=== PATIENT | male | born 1985 | race Hispanic/Latino ===

== ENCOUNTER 2025-07-12 17:27 | Emergency (ER) | payer SELFPAY ==
--- OUTSIDE RECORDS SUMMARY | 2025-07-12 17:29 | XMS REPORT | Continuity of Care Document ---
Author Name Unknown Address [address] [facility] [address] [place] [address] Organization [facility] [place] Address [address] 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 Role Phone Alden Kang Primary Care Physician [phone] ABDOUL BEASLEY Attending Clinician Unavailable Payers Payer Name Policy Type Policy Number Effective Date Expirati on Date Source [facility] [id number] 2014 00:00:00 Allergies, Adverse Reactions, Alerts Allergy Name Allergy Type Status Severity Reaction(s) Onset Date Inactive Date Treating Clinician Comments Source NO KNOWN ALLERGIE S Drug Class Active [facility] Social History Social Habit Start Date Stop Date Quantity Comments Source Sexual orientation U [facility] Sex assigned at 1985 00:00:00 1985 00:00:00 [facility] Smoking Status Start Date Stop Date Source Tobacco smoking consumption unknown [facility] Encounters Start Date/Time End Date/Time Encounter Type Admission Type Attending Clinicians Care Facility Care Department Encounter ID Source 2020-05-08 12:40:00 2020-05-08 12:40:00 Outpatient ABDOUL GUPTA [facility] [id number] [facility] 2020-05-06 16:40:00 2020-05-06 16:40:00 Outpatient Omero [facility] [id number] [facility]
[2025-07-12] MEDS ORDERED: ALBUTEROL 2.5 MG/3 ML NEB SOL ONE (17:30)
[2025-07-12] MEDS ORDERED: IPRATROPIUM BROM 0.5MG/2.5ML ONE (17:30)
[2025-07-12] MEDS ORDERED: METHYLPREDNISOLONE 125 MG INJ ONE (17:30)
[2025-07-12] MEDS ORDERED: FAMOTIDINE 20 MG/2 ML VIAL IV ONE (17:31)
[2025-07-12] MEDS ORDERED: DIPHENHYDRAMINE 50 MG/ML VIAL ONE (17:31)
[2025-07-12] MEDS ORDERED: NA CHLORIDE 0.9% 1,000 ML ONE ×2 (17:34→18:05)
[2025-07-12] MEDS ORDERED: LEVALBUTEROL 1.25 MG/3 ML NEB ONE (18:03)
[2025-07-12] MEDS ORDERED: predniSONE 20 MG TAB ONE (18:03)
[2025-07-12] MEDS ORDERED: THIAMINE 200 MG/2 ML INJ ONE (18:03)
--- NOTE | 2025-07-12 18:03 | RAD REPORT ---
EXAM: Chest Single View HISTORY: 40 years Male Cough;Dyspnea COMPARISON: No prior exams FINDINGS: LUNGS/PLEURA: The lungs are clear. No pleural effusions or pneumothorax. No pulmonary edema. CARDIAC/MEDIASTINUM: The cardiac silhouette is within normal limits. UPPER ABDOMEN: No significant abnormality. BONES: No acute abnormality. LINES/TUBES/OTHER: N/A IMPRESSION: No evidence of acute cardiopulmonary disease.
[2025-07-12] MEDS ORDERED: MULTIVITAMINS 10 ML VIAL (INJ) IV ONE (18:04)
[2025-07-12] MEDS ORDERED: FOLIC ACID 5 MG/ML VIAL ONE (18:05)
[2025-07-12] MEDS ORDERED: Magnesium Sulfate 2gm IVPB 2 G/50 ML BAG IV ONE (18:05)
[2025-07-12 18:23] LABS: Absolute Lymphocytes (CBC) 3.2 K/uL (0.7-4.9); Hematocrit 45.2 % (39.6-49.0); Hemoglobin 15.3 g/dL (13.6-17.9); MCH 29.0 pg (27.0-35.0); MCHC 33.9 g/dL (32.0-36.0); MCV 85.5 fL (80-100); MPV 7.5 fL (7.6-11.3); Nucleated RBC Absolute Count 0.0 (0-0); Nucleated Red Blood Cells % 0.1 % (0-0); RBC Red Blood Cell Count 5.29 M/uL (4.33-5.43); White Blood Count 11.80 thou/uL (4.3-10.9)
[2025-07-12 18:27] LABS: PT Prothrombin Time 11.3 SECONDS (10-13.0); PTT, Activated Partial Thromb 28.6 SECONDS (27.2-37.4); Protime INR 1.0
[2025-07-12 18:38] LABS: ALT/SGPT 33 U/L (16-61); AST/SGOT 29 U/L (15-37); Albumin 3.9 g/dL (3.4-5.0); Albumin/Globulin Ratio 1.1 (1.1-1.8); Alkaline Phosphatase 87 U/L (45-117); Anion Gap 14.5 mEq/L (5.0-15.0); BUN Blood Urea Nitrogen 7 mg/dL (7-18); Globulin 3.6 g/dL (2.3-3.5); Glucose Level 99 mg/dL (74-106); Potassium 3.5 mEq/L (3.5-5.1); Troponin High Sensitivity 6.3 pg/mL (<58.9)
[2025-07-12 18:39] LABS: Magnesium 2.6 mg/dL (1.6-2.4); NT PRO-BNP 12 pg/mL (<125)
[2025-07-12 18:46] LABS: Bilirubin Indirect, Calculated 0.5 mg/dL (0.2-0.8)
--- NOTE | 2025-07-12 19:03 | EDPHYS ---
Physician Documentation [facility] Name: Mariano Morris Age: 40 yrs Sex: Male : 1985 Arrival Date: 07/12/2025 Time: 17:27 Bed 16 Private MD: ED Physician Tomasz Camacho HPI: 07/12 17:56 This 40 yrs old Male presents to ER via Wheelchair with complaints of DYSPNEA, catina ASTHMA. 17:56 The patient has shortness of breath at rest, with light activity. Onset: The catina symptoms/episode began/occurred just prior to arrival. Duration: The symptoms are continuous, and are steadily getting worse. The patient's shortness of breath is aggravated by coughing, exertion, light activity. The patient presents to the emergency department with wheezing, Current therapy: None, that began without any particular precipitating event, the patient was reported to have audible wheezing, trouble breathing, Pre-hospital care: none. Onset: The symptoms/episode began/occurred. Modifying factors: The symptoms are alleviated by cool environment, inhaler, the symptoms are aggravated by cold weather, damp environment, exertion. Associated signs and symptoms: The patient has no apparent associated signs or symptoms. Severity of symptoms: At their worst the symptoms were moderate severe in the emergency department the symptoms have improved moderately. Associated signs and symptoms: Pertinent positives: chest pain, nausea. The patient has experienced similar episodes in the past, a few times. Historical: - Allergies: 17:44 hydrocodone bitartrate (bulk); db 17:44 ACETAMINOPHEN; db 17:44 meloxicam; db - PMHx: 17:44 Asthma; db - Immunization history:: Adult Immunizations unknown. - Infectious Disease History:: Denies. - Social history:: Smoking status: Patient reports the use of cigarette tobacco products. - Family history:: not pertinent. ROS: 17:56 Constitutional: Negative for fever, chills, and weight loss, Eyes: Negative for injury, catina pain, redness, and discharge, ENT: Negative for injury, pain, and discharge, Neck: Negative for injury, pain, and swelling, Abdomen/GI: Negative for abdominal pain, nausea, vomiting, diarrhea, and constipation, Back: Negative for injury and pain, : Negative for injury, bleeding, discharge, and swelling, MS/Extremity: Negative for injury and deformity, Skin: Negative for injury, rash, and discoloration, Neuro: Negative for headache, weakness, numbness, tingling, and seizure, Allergy/Immunology: Negative for hives, rash, and allergies, Endocrine: Negative for neck swelling, polydipsia, polyuria, polyphagia, and marked weight changes, Hematologic/Lymphatic: Negative for swollen nodes, abnormal bleeding, and unusual bruising, 17:56 Cardiovascular: Positive for palpitations, 17:56 Respiratory: Positive for cough, shortness of breath, wheezing, inspiratory, expiratory, 17:56 Abdomen/GI: Positive for nausea, 17:56 MS/extremity: Negative for acute changes, swelling, tenderness, 17:56 Neuro: Negative for altered mental status, dizziness, gait disturbance, loss of consciousness, seizure activity, 17:56 Psych: Positive for anxiety, Exam: 17:56 Constitutional: This is a well developed, well nourished patient who is awake, alert, catina and in no acute distress. Head/Face: Normocephalic, atraumatic. Eyes: Pupils equal round and reactive to light, extra-ocular motions intact. Lids and lashes normal. Conjunctiva and sclera are non-icteric and not injected. Cornea within normal limits. Periorbital areas with no swelling, redness, or edema. ENT: Nares patent. No nasal discharge, no septal abnormalities noted. Tympanic membranes are normal and external auditory canals are clear. Oropharynx with no redness, swelling, or masses, exudates, or evidence of obstruction, uvula midline. Mucous membranes moist. Neck: Trachea midline, no thyromegaly or masses palpated, and no cervical lymphadenopathy. Supple, full range of motion without nuchal rigidity, or vertebral point tenderness. No Meningismus. Chest/axilla: Normal chest wall appearance and motion. Nontender with no deformity. No lesions are appreciated. Abdomen/GI: Soft, non-tender, with normal bowel sounds. No distension or tympany. No guarding or rebound. No evidence of tenderness throughout. Back: No spinal tenderness. No costovertebral tenderness. Full range of motion. Male : Normal genitalia with no discharge or lesions. Skin: Warm, dry with normal turgor. Normal color with no rashes, no lesions, and no evidence of cellulitis. MS/ Extremity: Pulses equal, no cyanosis. Neurovascular intact. Full, normal range of motion., bilateral aka Neuro: Awake and alert, GCS 15, oriented to person, place, time, and situation. Cranial nerves II-XII grossly intact. Motor strength 5/5 in all extremities. Sensory grossly intact. Cerebellar exam normal. Normal gait. Psych: Awake, alert, with orientation to person, place and time. Behavior, mood, and affect are within normal limits. 17:56 Chest/axilla: Inspection: normal, Palpation: is normal, no acute changes, crepitus, is not appreciated, Axilla: are normal, Lymph nodes: lymphadenopathy is not appreciated, 17:56 ECG was reviewed by the Attending Physician. 18:07 Musculoskeletal/extremity: ROM: no acute changes, Circulation is intact in all catina extremities. Sensation intact. Compartment Syndrome exam of affected extremity: is normal. Weight bearing: able to fully bear weight, DVT Exam: No signs of deep vein thrombosis. no pain, no swelling, no tenderness, negative Homans' sign noted on exam, no appreciated bluish discoloration, no erythema, no increased warmth, Calves: are non-tender, have equal circumference, 18:07 Neuro: Orientation: is normal, appropriate for stated age, no acute changes, Mentation: is normal, appropriate for stated age, no acute changes, Memory: is normal, appropriate for stated age, no acute changes, Cranial nerves: grossly normal, Motor: is normal, is grossly normal based on the patient's age, no acute changes, moves all fours, strength is 5/5 in all extremities, Sensation: no obvious gross deficits, appropriate no acute changes, Gait: is steady, appropriate for age, Deep tendon reflexes are 2+ (normal) in the bilateral brachioradialis, bicep, tricep and patellar and Achilles tendons, Babinski testing is normal, seizure activity, is not displayed by the patient, Vital Signs: 17:28 BP 120 / 83; Pulse 136; Resp 36; Temp 97.9(A); db 17:45 BP 131 / 90; Pulse 131; Resp 28; Pulse Ox 99% on 2 lpm NC; db 18:00 BP 121 / 73; Pulse 130; Resp 24; Pulse Ox 96% on 2 lpm [place]; db 18:15 BP 122 / 72; Pulse 122; Resp 27; Pulse Ox 97% on 2 lpm [place]; db 19:30 BP 106 / 61; Pulse 98; Resp 20; Temp 98.2; Pulse Ox 100% ; kj2 [place] Coma Score: 18:07 Eye Response: spontaneous(4). Motor Response: obeys commands(6). Verbal Response: catina oriented(5). Total: 15. MDM: 17:29 Medical Screening Exam initiated catina 18:00 Differential diagnosis: Anemia Anxiety Reaction asthma, Bronchitis CHF exacerbation, catina Chronic Obstructive Pulmonary Disease acute asthma, exercise-induced asthma, reactive airway, CHF, anaphylaxis, URI, Myocardial Infarction pneumonia, Pneumothorax Psychogenic pulmonary edema, Pulmonary Embolism reactive airway disease, Sepsis Unstable Angina. Antibiotic administration: The patient is discharged and will get outpatient antibiotics, Zithromax. Immunization status:. Data reviewed: vital signs, nurses notes, lab test result(s), EKG, radiologic studies, plain films. Consideration of Admission/Observation Escalation of care including admission/observation considered. I considered the following discharge prescriptions or medication management in the emergency department Medications were administered in the Emergency Department. See MAR. Independent interpretation of the following test(s) in the Emergency Department EKG: See my EKG interpretation above. Test considered but Not performed: CT: NO CT CHEST . Historians other than the Patient: Family Member: MULTIPLE FAMILY MEMBERS. Care significantly affected by the following chronic conditions: ASTHMA. Counseling: I had a detailed discussion with the patient and/or guardian regarding the historical points, exam findings, and any diagnostic results supporting the discharge/admit diagnosis, the presence of at least one elevated blood pressure reading (>120/80) during this emergency department visit, lab results, radiology results, the need for outpatient follow up, for definitive care, a family practitioner, a psychiatrist. 07/12 17:30 Order name: Basic Metabolic Panel; Complete Time: 18:53 [facility] 07/12 17:30 Order name: CBC with Diff; Complete Time: 18:42 [facility] 07/12 17:30 Order name: LFT's; Complete Time: 18:53 [facility] 07/12 17:30 Order name: Magnesium; Complete Time: 18:53 [facility] 07/12 17:30 Order name: NT PRO-BNP; Complete Time: 18:53 [facility] 07/12 17:30 Order name: PT-INR; Complete Time: 18:42 [facility] 07/12 17:30 Order name: Troponin HS; Complete Time: 18:53 [facility] 07/12 17:30 Order name: Acetaminophen; Complete Time: 18:53 [facility] 07/12 17:30 Order name: ETOH Level; Complete Time: 19:02 [facility] 07/12 17:30 Order name: Ptt, Activated; Complete Time: 18:42 catina 07/12 17:30 Order name: Salicylate; Complete Time: 18:53 [facility] 07/12 17:30 Order name: XRAY Chest (1 view); Complete Time: 18:13 [facility] 07/12 17:30 Order name: EKG; Complete Time: 17:31 [facility] 07/12 17:30 Order name: Cardiac monitoring; Complete Time: 17:58 [facility] 07/12 17:30 Order name: EKG - Nurse/Tech; Complete Time: 17:58 [facility] 07/12 17:30 Order name: IV Saline Lock; Complete Time: 17:35 [facility] 07/12 17:30 Order name: Labs collected and sent; Complete Time: 17:59 [facility] 07/12 17:30 Order name: O2 Per Protocol; Complete Time: 17:59 [facility] 07/12 17:30 Order name: O2 Sat Monitoring; Complete Time: 17:59 [facility] 07/12 17:30 Order name: Suicide Screening ([place]); Complete Time: 17:47 [facility] 07/12 18:14 Order name: PO challenge; Complete Time: 19:33 [facility] EC:56 Rate is 132 beats/min. Rhythm is regular. QRS [place] is Normal. HI interval is normal. QT catina interval is normal. No Q waves. T waves are Normal. No ST changes noted. Clinical impression: Sinus tachycardia and No evidence of ischemia. Interpreted by me. Reviewed by me. Administered Medications: 19:44 Discontinued: Banana Bag - (ns 0.9% 1000 ml, folic acid ivpb 1 mg, [id number] mg, kj2 multivitamin1 amp) IV at 500 ml/hr once 17:30 Drug: Albuterol Inhalation 7.5 mg Inhalation once Route: Inhalation; db 18:39 Follow up: Response: No adverse reaction db 17:31 Drug: Ipratropium Inhalation Aerosol 0.5 mg Inhalation once Route: Inhalation; db 19:46 Follow up: Response: No adverse reaction kj2 17:33 Not Given (Physician Discretion): levalbuterol3.75 mg Inhalation once db 17:35 Drug: NS 0.9% IV 1000 ml IV at 1000 ml once; to be given as a bolus over 60 minutes db Route: IV; Rate: 1000 ml; Site: right wrist; 18:30 Follow up: Response: No adverse reaction; IV Status: Completed infusion; IV Intake: db 1000ml 17:35 Drug: MethylPrednisoLONE IVP 125 mg IVP once Route: IVP; Site: right wrist; db 18:38 Follow up: Response: No adverse reaction db 17:35 Drug: Famotidine IVP 40 mg IVP once; dilute with 10 mL 0.9% NaCl; give over 2 minutes db Route: IVP; Site: right wrist; 18:38 Follow up: Response: No adverse reaction db 17:35 Drug: diphenhydrAMINE IVP 25 mg IVP once Route: IVP; Site: right wrist; db 18:38 Follow up: Response: No adverse reaction db 18:15 Drug: predniSONE PO 40 mg PO once Route: PO; db 18:38 Follow up: Response: No adverse reaction db 18:15 Drug: Magnesium Sulfate IVPB 2 grams IVPB once over 2 hrs Route: IVPB; Infused Over: 2 db hrs; Site: right wrist; 19:45 Follow up: IV Status: Completed infusion; IV Intake: 100ml kj2 18:15 Drug: Levalbuterol Inhalation 2.5 mg Inhalation once Route: Inhalation; db 19:45 Follow up: Response: No adverse reaction kj2 18:15 Drug: Thiamine IV 100 mg IV at bolus once Route: IV; Rate: bolus; Site: right wrist; db 19:45 Follow up: IV Status: Order to discontinue infusion; IV Intake: 700ml kj2 18:15 Drug: Banana Bag - (Multivitamin IV 1 amp, NS 0.9% IV 1000 ml, Thiamine IV 100 mg, db foLIC Acid IVPB 1 mg) IV at 500 ml/hr once Route: IV; Rate: 500 ml/hr; Site: right wrist; 23:51 Follow up: IV Status: Order to discontinue infusion; IV Intake: 700ml kj2 Disposition Summary: 07/12/25 19:02 Discharge Ordered Notes: Location: Home catina Problem: new catina Symptoms: have improved catina Condition: Stable catina Diagnosis - Moderate persistent asthma with (acute) exacerbation catina - Dyspnea catina - Anxiety disorder, unspecified catina - Alcohol abuse catina - Alcohol abuse with intoxication catina Followup: catina - With: Private Physician - When: 2 - 3 days - Reason: Recheck today's complaints, Continuance of care, Re-evaluation by your physician Followup: catina - With: Alphonso Dalton MD - When: 2 - 3 days - Reason: Recheck today's complaints, Re-evaluation by your physician Discharge Instructions: - Discharge Summary Sheet catina - Alcohol Intoxication catina - Panic Attack catina - Asthma, Adult catina - Alcohol Use Disorder catina - How to Use a Metered Dose Inhaler catina - Alcohol Abuse and Nutrition catina - Asthma, Adult, [id number] catina - Panic Attack, [id number] catina - Asthma Action Plan, Adult catina - Cough, Adult catina - Managing Anxiety, Adult catina Forms: - Medication Reconciliation Form [facility] - Antibiotic Education catina - Prescription Opioid Use catina - Patient Portal Instructions [facility] - Leadership Thank You Letter [facility] Prescriptions: - albuterol sulfate 90 mcg/actuation Inhalation HFA Aerosol Inhaler - inhale 2 puff INHALATION route every 4 to 6 hours as needed for shortness of catina breath or wheezing; 1 unit; Refills: 0, Product Selection Permitted - Pepcid 20 mg Oral tablet - take 1 tablet ORAL route every 12 hours for 21 days; 42 tablet; Refills: 0, catina Product Selection Permitted - Albuterol Sulfate 2.5 mg /3 mL (0.083 %) Inhalation Solution for Nebulization - inhale 1 unit NEBULIZATION route every 4-6 hours As needed; 36 unit; Refills: catina 0, Product Selection Permitted - Zithromax Z-Prince 250 mg Oral Tablet - take 1 tablet ORAL route as directed for 5 days Day 1 - take two (2) tablets catina one time. Day 2, 3, 4 , 5 take one (1) tablet once daily.; 6 tablet; Refills: 0, Product Selection Permitted - Prednisone 20 mg Oral Tablet - take 2 tablets ORAL route once daily for 5 days; 10 tablet; Refills: 0, Product catina Selection Permitted Signatures: Dispatcher [employer] EDMS Tomasz Camacho MD MD cha Benton, Danielle, FELICITAS RN Laurie Harley PAMeka PA-Stanislav [id number] Hollie Toney RN kj2 Corrections: (The following items were deleted from the chart) 17:31 17:31 BASIC METABOLIC PANEL+C.LAB.BRZ ordered. EDMS EDMS 17:31 17:31 CBC+H.LAB.BRZ ordered. EDMS EDMS 17: 17:31 HEPATIC FUNCTION+C.LAB.BRZ ordered. EDMS EDMS 17: 17:31 MAGNESIUM+C.LAB.BRZ ordered. EDMS EDMS 17: 17:31 PROBNP+C.LAB.BRZ ordered. EDMS EDMS 17: 17:31 PROTIME (+INR)+COAG.LAB.BRZ ordered. EDMS EDMS 17: 17:31 Troponin High Sensitivity+C.LAB.BRZ ordered. EDMS EDMS 17: 17:31 ACETAMINOPHEN+C.LAB.BRZ ordered. EDMS EDMS 17: 17:31 ETHANOL+C.LAB.BRZ ordered. EDMS EDMS 17: 17:31 PTT, ACTIVATED+COAG.LAB.BRZ ordered. EDMS EDMS 17: 17:31 SALICYLATE+C.LAB.BRZ ordered. EDMS EDMS 17: 17:31 URINE DRUG SCREEN+UC.LAB.BRZ ordered. EDMS EDMS
--- NOTE | 2025-07-12 19:03 | ER ---
Nurse's Notes [facility] Name: Mariano Morris Age: 40 yrs Sex: Male : 1985 Arrival Date: 07/12/2025 Time: 17:27 Bed 16 Private MD: Diagnosis: Moderate persistent asthma with (acute) exacerbation;Dyspnea;Anxiety disorder, unspecified;Alcohol abuse;Alcohol abuse with intoxication Presentation: 07/12 17:43 Chief complaint: Patient states: PT PRESENTED ASTHMA EXACERBATION. CAME WITH FAMILY. db Coronavirus screen: Client denies travel out of the [place] in the last 14 days. At this time, the client does not indicate any symptoms associated with coronavirus-19. Ebola Screen: Patient negative for fever greater than or equal to 101.5 degrees Fahrenheit, and additional compatible Ebola Virus Disease symptoms Patient denies exposure to infectious person. Patient denies travel to an Ebola-affected area in the 21 days before illness onset. No symptoms or risks identified at this time. Initial Sepsis Screen: Does the patient meet any 2 criteria? No. Patient's initial sepsis screen is negative. Does the patient have a suspected source of infection? No. Patient's initial sepsis screen is negative. Risk Assessment: Do you want to hurt yourself or someone else? Patient reports no desire to harm self or others. Onset of symptoms was July 12, 2025 at 17:25. 17:43 Method Of Arrival: Wheelchair db 17:43 Acuity: AMBER 1 db Triage Assessment: 17:44 General: Appears distressed, Behavior is anxious. Pain: Unable to use pain scale. db Neuro: Level of Consciousness is awake, alert, obeys commands, Oriented to. Respiratory: Reports shortness of breath at rest since 1700 air hunger Airway is patent Respiratory effort is even, labored, Respiratory pattern is regular, symmetrical. Historical: - Allergies: 17:44 hydrocodone bitartrate (bulk); db 17:44 ACETAMINOPHEN; db 17:44 meloxicam; db - PMHx: 17:44 Asthma; db - Immunization history:: Adult Immunizations unknown. - Infectious Disease History:: Denies. - Social history:: Smoking status: Patient reports the use of cigarette tobacco products. - Family history:: not pertinent. Screenin:15 [facility] ED Fall Risk Assessment (Adult) History of falling in the last 3 months, db including since admission No falls in past 3 months (0 pts) Confusion or Disorientation No (0 pts) Intoxicated or Sedated No (0 pts) Impaired Gait No (0 pts) Mobility Assist Device Used No (0 pt) Altered Elimination No (0 pt) Score/Fall Risk Level 0 - 2 = Low Risk Oriented to surroundings, Maintained a safe environment. Abuse screen: Denies threats or abuse. Denies injuries from another. Nutritional screening: No deficits noted. Tuberculosis screening: No symptoms or risk factors identified. Assessment: 18:15 Reassessment: Patient appears in no apparent distress at this time. Patient and/or db family updated on plan of care and expected duration. Pain level reassessed. Patient is alert, oriented x 3, equal unlabored respirations, skin warm/dry/pink. Patient states feeling better. Patient states symptoms have improved. 18:20 Reassessment: Patient appears in no apparent distress at this time. Patient and/or kj2 family updated on plan of care and expected duration. Pain level reassessed. Patient is alert, oriented x 3, equal unlabored respirations, skin warm/dry/pink. 18:35 Reassessment: Patient appears in no apparent distress at this time. Patient and/or kj2 family updated on plan of care and expected duration. Pain level reassessed. Patient is alert, oriented x 3, equal unlabored respirations, skin warm/dry/pink. Vital Signs: 17:28 BP 120 / 83; Pulse 136; Resp 36; Temp 97.9(A); db 17:45 BP 131 / 90; Pulse 131; Resp 28; Pulse Ox 99% on 2 lpm NC; db 18:00 BP 121 / 73; Pulse 130; Resp 24; Pulse Ox 96% on 2 lpm NC; db 18:15 BP 122 / 72; Pulse 122; Resp 27; Pulse Ox 97% on 2 lpm NC; db 19:30 BP 106 / 61; Pulse 98; Resp 20; Temp 98.2; Pulse Ox 100% ; kj2 Roya Coma Score: 18:07 Eye Response: spontaneous(4). Motor Response: obeys commands(6). Verbal Response: catina oriented(5). Total: 15. ED Course: 17:29 Patient arrived in ED. catina 17:29 Tomasz Camacho MD is Attending Physician. catina 17:30 Initial lab(s) drawn, sent to lab. EKG done, reviewed by Tomasz Camacho MD. Inserted db saline lock: 22 gauge in right wrist, using aseptic technique. Blood collected. Flushed with 10 mL NS. 17:44 Triage completed. db 17:46 Arm band placed on Patient placed in an exam room. db 17:58 XRAY Chest (1 view) In Process Unspecified. EDMS 18:15 Patient has correct armband on for positive identification. Bed in low position. Call db light in reach. Side rails up X 1. Client placed on continuous cardiac and pulse oximetry monitoring. NIBP monitoring applied. gambling monitor on. Pulse ox on. NIBP on. Warm blanket given. Pillow given. 18:30 Provided Education on: call light. Report received from FELICITAS De Santiago. kj2 18:38 Hollie Toney RN is Primary Nurse. kj2 19:02 Alphonso Dalton MD is Referral Physician. [facility] 19:48 No provider procedures requiring assistance completed. IV discontinued, intact, kj2 bleeding controlled, No redness/swelling at site. Pressure dressing applied. Administered Medications: 19:44 Discontinued: Banana Bag - (ns 0.9% 1000 ml, folic acid ivpb 1 mg, mg, kj2 multivitamin1 amp) IV at 500 ml/hr once 17:30 Drug: Albuterol Inhalation 7.5 mg Inhalation once Route: Inhalation; db 18:39 Follow up: Response: No adverse reaction db 17:31 Drug: Ipratropium Inhalation Aerosol 0.5 mg Inhalation once Route: Inhalation; db 19:46 Follow up: Response: No adverse reaction kj2 17:33 Not Given (Physician Discretion): levalbuterol3.75 mg Inhalation once db 17:35 Drug: NS 0.9% IV 1000 ml IV at 1000 ml once; to be given as a bolus over 60 minutes db Route: IV; Rate: 1000 ml; Site: right wrist; 18:30 Follow up: Response: No adverse reaction; IV Status: Completed infusion; IV Intake: db 1000ml 17:35 Drug: MethylPrednisoLONE IVP 125 mg IVP once Route: IVP; Site: right wrist; db 18:38 Follow up: Response: No adverse reaction db 17:35 Drug: Famotidine IVP 40 mg IVP once; dilute with 10 mL 0.9% NaCl; give over 2 minutes db Route: IVP; Site: right wrist; 18:38 Follow up: Response: No adverse reaction db 17:35 Drug: diphenhydrAMINE IVP 25 mg IVP once Route: IVP; Site: right wrist; db 18:38 Follow up: Response: No adverse reaction db 18:15 Drug: predniSONE PO 40 mg PO once Route: PO; db 18:38 Follow up: Response: No adverse reaction db 18:15 Drug: Magnesium Sulfate IVPB 2 grams IVPB once over 2 hrs Route: IVPB; Infused Over: 2 db hrs; Site: right wrist; 19:45 Follow up: IV Status: Completed infusion; IV Intake: 100ml kj2 18:15 Drug: Levalbuterol Inhalation 2.5 mg Inhalation once Route: Inhalation; db 19:45 Follow up: Response: No adverse reaction kj2 18:15 Drug: Thiamine IV 100 mg IV at bolus once Route: IV; Rate: bolus; Site: right wrist; db 19:45 Follow up: IV Status: Order to discontinue infusion; IV Intake: 700ml kj2 18:15 Drug: Banana Bag - (Multivitamin IV 1 amp, NS 0.9% IV 1000 ml, Thiamine IV 100 mg, db foLIC Acid IVPB 1 mg) IV at 500 ml/hr once Route: IV; Rate: 500 ml/hr; Site: right wrist; 23:51 Follow up: IV Status: Order to discontinue infusion; IV Intake: 700ml kj2 Medication: 18:41 VIS not applicable for this client. db Intake: 18:30 IV: 1000ml; Total: 1000ml. db 19:45 IV: 700ml; Total: 1700ml. kj2 19:45 IV: 100ml; Total: 1800ml. kj2 23:51 IV: 700ml; Total: 2500ml. kj2 Outcome: 19:02 Discharge ordered by MD. dominique 19:48 Discharged to home ambulatory, kj2 19:48 Condition: stable 19:48 Discharge instructions given to patient, Instructed on discharge instructions, follow up and referral plans. Demonstrated understanding of instructions, follow-up care, medications, Prescriptions given X 4, 19:49 Patient left the ED. kj2 Signatures: Dispatcher [employer] EDWA Tomasz Camacho MD MD cha Benton, Danielle, FELICITAS RN Hollie Pinedo RN RN kj2 Corrections: (The following items were deleted from the chart) 18:00 17:59 Inserted saline lock: 22 gauge in right wrist, using aseptic technique. Blood db collected. Flushed with 10 mL NS jodi 18:00 17:59 Initial lab(s) drawn, sent to lab. EKG done, reviewed by Tomasz zapata db 18:30 17:43 BP 120 / 83; Pulse 136bpm; Resp 36bpm; Temp 97.9F Axillary; db db
== END 2025-07-12 19:49 | disposition home or self-care (01) ==
LOC: ER 17:27
DX: J45.41 Moderate persistent asthma with (acute) exacerbation (principal); F41.9 Anxiety disorder, unspecified; F10.129 Alcohol abuse with intoxication, unspecified; Z72.0 Tobacco use
CPT/HCPCS: 36415; 71045; 80048; 80076; 80143; 80179; 82077; 83735; 83880; 84484; 85025; 85610; 85730; 93005; 96361; 96365; 96366; 96367; 96368; 96375; 99285; J1200; J2919; J3411; J3475; J7030; J7512; J7613; J7614; J7644

== ENCOUNTER 2025-08-05 03:00 | Emergency (ER) | payer SELFPAY ==
--- NOTE | 2025-08-05 03:32 | EDPHYS ---
Physician Documentation [facility] Name: Mariano Morris Age: 40 yrs Sex: Male : 1985 Arrival Date: 08/05/2025 Time: 03:00 Bed 3 Private MD: ED Physician Melvin Phillips HPI: 08/05 03:16 This 40 yrs old Male presents to ER via Unassigned with complaints of Chest sp4 Pain. 23:41 40-year-old male presents with EMS for complaint of acute left-sided chest pain with sp4 radiation down the left arm. Patient reports he has history of asthma and uncontrolled hypertension. Patient reports he has consumed a line of cocaine at the local bar. Pain started shortly after cocaine consumption.. Historical: - Allergies: 03:30 ACETAMINOPHEN; bm8 03:30 hydrocodone bitartrate (bulk); bm8 03:30 meloxicam; bm8 - Home Meds: 03:30 None [Active]; bm8 - PMHx: 03:30 Asthma; bm8 - PSHx: 03:30 None; bm8 - Immunization history:: Adult Immunizations up to date. - Infectious Disease History:: Denies. - Social history:: Smoking status: Patient reports the use of cigarette tobacco products, smokes one pack cigarettes per day. Patient uses alcohol, only on a social basis. street drugs, cocaine. - Family history:: not pertinent. ROS: 23:41 Constitutional: Negative for fever, chills, and weight loss, positive acute chest pain, sp4 positive cocaine ingestion 23:41 All other systems are negative, Exam: 23:41 Constitutional: This is a well developed, well nourished patient who is awake, alert, sp4 and in no acute distress. Head/Face: Normocephalic, atraumatic. Eyes: Pupils equal round and reactive to light, extra-ocular motions intact. Lids and lashes normal. Conjunctiva and sclera are not injected. Cornea within normal limits. Periorbital areas with no swelling, redness, or edema. ENT: Nares patent. No nasal discharge, no septal abnormalities noted. Tympanic membranes are normal and external auditory canals are clear. Oropharynx with no redness, swelling, or masses, exudates, or evidence of obstruction, uvula midline. Mucous membranes moist. Neck: Trachea midline, no thyromegaly or masses palpated, and no cervical lymphadenopathy. Supple, full range of motion without nuchal rigidity, or vertebral point tenderness. Chest/axilla: Normal chest wall appearance and motion. Nontender with no deformity. No lesions are appreciated. Cardiovascular: Regular rate and rhythm with a normal S1 and S2. No gallops, murmurs, or rubs. No pulse deficits. Respiratory: Lungs have equal breath sounds bilaterally, clear to auscultation and percussion. No rales, rhonchi or wheezes noted. No increased work of breathing, no retractions or nasal flaring. Abdomen/GI: Soft, with normal bowel sounds. No distension or tympany. No guarding or rebound. No evidence of tenderness throughout. Back: No spinal tenderness. No costovertebral tenderness. Skin: Warm, dry with normal turgor. Normal color with no rashes, no lesions, and no evidence of cellulitis. MS/ Extremity: Pulses equal, no cyanosis. Neurovascular intact. Full, normal range of motion. Neuro: Awake and alert, GCS 15, oriented to person, place, time, and situation. Cranial nerves II-XII grossly intact. Motor strength 5/5 in all extremities. Sensory grossly intact. Psych: Awake, alert, with orientation to person, place and time. Behavior, mood, and affect are within normal limits 23:41 ECG was reviewed by the Attending Physician. Positive for EKG at 0302 normal sinus rhythm, normal EKG Vital Signs: 03:03 BP 132 / 90; Pulse 99; Resp 20; Temp 98; Pulse Ox 99% ; Weight 81.65 kg; Height 5 ft. 7 bm8 in. ; Pain 2/10; 03:32 bm8 03:03 Body Mass Index 28.19 (81.65 kg, 170.18 cm) bm8 03:03 Pain Scale: Adult bm8 03:32 pt declines vitals at this time bm8 Roya Coma Score: 03:32 Eye Response: spontaneous(4). Verbal Response: oriented(5). Motor Response: obeys bm8 commands(6). Total: 15. 23:41 Eye Response: spontaneous(4). Verbal Response: oriented(5). Motor Response: obeys sp4 commands(6). Total: 15. MDM: 03:03 Medical Screening Exam initiated sp4 23:44 Differential diagnosis: acute myocardial infarction, acute pericarditis, anxiety, chest sp4 wall pain, costochondritis, esophagitis, gastritis. HEART Score: History: Slightly Suspicious (0), ECG: Normal (0), Age: < or = 45 years (0), Risk Factors: 1 or 2 risk factors (1), [Hypertension] Troponin: < or = 1 x Normal Limit (0), Total Score = 1. Data reviewed: vital signs, nurses notes, EMS record, EKG. ED course: Patient states he is feeling better and pain is resolving. He would like to be released from the ER. Patient declined labs and other workup. Vital signs are stable we believe it is appropriate for patient to be given informed discharge. 08/05 03:05 Order name: EKG - Nurse/Tech; Complete Time: 03:35 sp4 08/05 03:05 Order name: IV Saline Lock; Complete Time: 03:35 sp4 08/05 03:05 Order name: Labs collected and sent; Complete Time: 03:35 sp4 08/05 03:05 Order name: O2 Per Protocol; Complete Time: 03:35 sp4 08/05 03:05 Order name: O2 Sat Monitoring; Complete Time: 03:35 sp4 EC:02 Rate is 95 beats/min. Rhythm is regular, Normal Sinus Rhythm. QRS [place] is Normal. GA sp4 interval is normal. QRS interval is normal. QT interval is normal. No Q waves. T waves are Normal. No ST changes noted. Clinical impression: No evidence of ischemia. Interpreted by me. Reviewed by me. Administered Medications: 03:37 Drug: Diazepam PO 5 mg PO once Route: PO; bm8 03:37 Follow up: Response: No adverse reaction; Medication Administered at Departure bm8 Disposition Summary: 08/05/25 03:31 Discharge Ordered Notes: Location: Home sp4 Problem: new sp4 Symptoms: have improved sp4 Condition: Stable sp4 Diagnosis - Atypical chest pain, Cocain ingestion sp4 Followup: sp4 - With: Gómez Mcfadden DO - When: 7 - 10 days - Reason: Recheck today's complaints Discharge Instructions: - Discharge Summary Sheet sp4 - Cocaine Use Disorder sp4 Forms: - Patient Portal Instructions sp4 Signatures: Dispatcher [employer] EDMelvin Marquis MD MD sp4 Clarence Calloway, RN RN bm8 Corrections: (The following items were deleted from the chart) 03:05 03:05 BASIC METABOLIC PANEL+C.LAB.BRZ ordered. EDMS EDMS 03:05 03:05 CBC+H.LAB.BRZ ordered. EDMS EDMS 03:05 03:05 Troponin High Sensitivity+C.LAB.BRZ ordered. EDMS EDMS 03:05 03:05 Chest Single View+RAD.RAD.BRZ ordered. EDMS EDMS 03:34 03:05 Cardiac monitoring ordered. sp4 bm8
--- NOTE | 2025-08-05 03:32 | ER ---
Nurse's Notes [facility] Name: Mariano Morris Age: 40 yrs Sex: Male : 1985 Arrival Date: 08/05/2025 Time: 03:00 Bed 3 Private MD: Diagnosis: Atypical chest pain, Cocain ingestion Presentation: 08/05 03:03 Chief complaint: Patient states: I had chest pain that started about 30 mins ago bm8 radiating down my left arm. It's feeling better now though. 03:03 Coronavirus screen: At this time, the client does not indicate any symptoms associated bm8 with coronavirus-19. Ebola Screen: Patient negative for fever greater than or equal to 101.5 degrees Fahrenheit, and additional compatible Ebola Virus Disease symptoms Patient denies exposure to infectious person. Patient denies travel to an Ebola-affected area in the 21 days before illness onset. No symptoms or risks identified at this time. Initial Sepsis Screen: Does the patient meet any 2 criteria? Yes Does the patient have a suspected source of infection? No. Patient's initial sepsis screen is negative. Risk Assessment: Do you want to hurt yourself or someone else? Patient reports no desire to harm self or others. Onset of symptoms was August 05, 2025 at 02:30. 03:03 Method Of Arrival: EMS: [facility] bm8 03:03 Acuity: AMBER 2 bm8 03:32 Care prior to arrival: IV initiated. 18 GA, in the left antecubital area. bm8 Triage Assessment: 03:03 General: Appears in no apparent distress. comfortable, Behavior is calm, cooperative, bm8 appropriate for age. Pain: Complains of pain in left breast Pain currently is 2 out of 10 on a pain scale. 03:03 EENT: No deficits noted. No signs and/or symptoms were reported regarding the EENT bm8 system. Neuro: No deficits noted. Level of Consciousness is awake, alert, obeys commands, Oriented to person, place, time, situation, Appropriate for age. Cardiovascular: Reports chest pain, Heart tones S1 S2 present Capillary refill < 3 seconds in bilateral fingers Patient's skin is warm and dry. Rhythm is sinus rhythm. Respiratory: Airway is patent Respiratory effort is even, unlabored, Respiratory pattern is regular, symmetrical, Breath sounds are clear. GI: No deficits noted. No signs and/or symptoms were reported involving the gastrointestinal system. : No deficits noted. No signs and/or symptoms were reported regarding the genitourinary system. Derm: No deficits noted. No signs and/or symptoms reported regarding the dermatologic system. Musculoskeletal: No deficits noted. No signs and/or symptoms reported regarding the musculoskeletal system. Historical: - Allergies: 03:30 ACETAMINOPHEN; bm8 03:30 hydrocodone bitartrate (bulk); bm8 03:30 meloxicam; bm8 - Home Meds: 03:30 None [Active]; bm8 - PMHx: 03:30 Asthma; bm8 - PSHx: 03:30 None; bm8 - Immunization history:: Adult Immunizations up to date. - Infectious Disease History:: Denies. - Social history:: Smoking status: Patient reports the use of cigarette tobacco products, smokes one pack cigarettes per day. Patient uses alcohol, only on a social basis. street drugs, cocaine. - Family history:: not pertinent. Screenin:32 [facility] ED Fall Risk Assessment (Adult) History of falling in the last 3 months, bm8 including since admission No falls in past 3 months (0 pts) Confusion or Disorientation No (0 pts) Intoxicated or Sedated Yes (3 pts) Impaired Gait No (0 pts) Mobility Assist Device Used No (0 pt) Altered Elimination No (0 pt) Score/Fall Risk Level 0 - 2 = Low Risk Oriented to surroundings, Maintained a safe environment, Educated pt \T\ family on fall prevention, incl call for assistance when getting out of bed, Assessed \T\ reinforced patient's understanding of fall precautions, Hourly rounding (assess needs \T\ fall precautionary measures) done, Used ambulatory aids as needed (educated on \T\ assisted with), Used gait belt as appropriate. Abuse screen: Denies threats or abuse. Nutritional screening: No deficits noted. Tuberculosis screening: No symptoms or risk factors identified. Assessment: 03:32 Reassessment: Patient appears in no apparent distress at this time. Patient and/or bm8 family updated on plan of care and expected duration. Pain level reassessed. Patient is alert, oriented x 3, equal unlabored respirations, skin warm/dry/pink. Patient denies pain at this time. Patient states feeling better. Patient states symptoms have improved. Pain: Denies pain. Pain does not radiate. Pain began 1 hour ago. Vital Signs: 03:03 BP 132 / 90; Pulse 99; Resp 20; Temp 98; Pulse Ox 99% ; Weight 81.65 kg; Height 5 ft. 7 bm8 in. ; Pain 2/10; 03:32 bm8 03:03 Body Mass Index 28.19 (81.65 kg, 170.18 cm) bm8 03:03 Pain Scale: Adult bm8 03:32 pt declines vitals at this time bm8 Lagrange Coma Score: 03:32 Eye Response: spontaneous(4). Verbal Response: oriented(5). Motor Response: obeys bm8 commands(6). Total: 15. 23:41 Eye Response: spontaneous(4). Verbal Response: oriented(5). Motor Response: obeys sp4 commands(6). Total: 15. ED Course: 03:03 Patient arrived in ED. sp4 03:03 Melvin Phillips MD is Attending Physician. sp4 03:03 Arm band placed on right wrist. bm8 03:18 Clarence Calloway, RN is Primary Nurse. bm8 03:30 Triage completed. bm8 03:31 Gómez Mcfadden DO is Referral Physician. sp4 03:32 Patient has correct armband on for positive identification. Bed in low position. Call bm8 light in reach. Side rails up X 1. Provided Education on: post er care, stop using illicit drugs.. pt declined monitoring. 03:32 No provider procedures requiring assistance completed. IV discontinued, intact, bm8 bleeding controlled, No redness/swelling at site. Pressure dressing applied, pt removed previously placed IV. Patient maintains SpO2 saturation greater than 95% on room air. Administered Medications: 03:37 Drug: Diazepam PO 5 mg PO once Route: PO; bm8 03:37 Follow up: Response: No adverse reaction; Medication Administered at Departure bm8 Medication: 03:32 VIS not applicable for this client. bm8 Outcome: 03:31 Discharge ordered by . sp4 03:38 Discharged to home ambulatory, with family, with friend, bm8 03:38 Condition: stable 03:38 Discharge instructions given to patient, family, Instructed on discharge instructions, follow up and referral plans. no drinking with medication, no driving heavy equipment, medication usage, safety practices, Demonstrated understanding of instructions, follow-up care, medications, 03:41 Patient left the ED. nh2 Signatures: Melvin Phillips MD MD sp4 Clarence Calloway RN RN bm8 Rigo Moss Jr, RN RN nh2
[2025-08-05] MEDS ORDERED: DIAZEPAM 5 MG TABLET ONE (03:36)
[2025-08-05 07:14] VITALS: BP 132/90; TEMP 98; O2SAT 99
== END 2025-08-05 03:41 | disposition home or self-care (01) ==
LOC: ER 03:00
DX: R07.89 Other chest pain (principal); T40.5X5A Adverse effect of cocaine, initial encounter; F17.210 Nicotine dependence, cigarettes, uncomplicated
CPT/HCPCS: 93005; 99283